=== PATIENT | male | born 1985 | race Asian ===

== ENCOUNTER 2018-02-27 06:22 | Day surgery (SDC) | payer BC ==
[2018-02-27] MEDS ORDERED: CEFAZOLIN 1 GM INJ (07:00)
[2018-02-27] MEDS ORDERED: GELATIN SIZE 100 SPONGE (07:43)
[2018-02-27] MEDS ORDERED: THROMBIN 5000 UNIT VIAL (07:43)
[2018-02-27] MEDS ORDERED: LIDOCAINE 2% (SDV) 5 ML INJ (07:47)
[2018-02-27] MEDS ORDERED: NEOSTIGMINE 3 MG/3 ML SYRINGE (07:47)
[2018-02-27] MEDS ORDERED: PROPOFOL 20 ML (07:47)
[2018-02-27] MEDS ORDERED: SUCCINYLCHOLINE CHLORIDE 100 MG/5 ML SYG IV (07:47)
[2018-02-27] MEDS ORDERED: ROCURONIUM 50 MG INJ (07:47)
[2018-02-27] MEDS ORDERED: GLYCOPYRROLATE 0.4 MG INJ (07:47)
[2018-02-27] MEDS ORDERED: MEPERIDINE 100 MG INJ (07:48)
[2018-02-27] MEDS: LIDOCAINE 1% (MPF) 30 ML INJ (08:41)
[2018-02-27] MEDS: HEPARIN 1000 UNITS/ML 10 ML INJ (08:42)
[2018-02-27] MEDS ORDERED: HYDROmorphONE 1 MG/5 ML IV SYRINGE IV ×3 (09:30)
[2018-02-27] MEDS ORDERED: ONDANSETRON 4 MG INJ IV (09:30)
[2018-02-27] MEDS ORDERED: EPHEDrine SULFATE 50 MG/5 ML SYG IV (09:30)
[2018-02-27] MEDS ORDERED: MEPERIDINE 25 MG INJ IV (09:30)
[2018-02-27] MEDS ORDERED: LABETALOL HCL 20MG INJ IV (09:30)
[2018-02-27] MEDS ORDERED: FENTAnyl 50 MCG/ML VIAL IV ×3 (09:30)
[2018-02-27] MEDS ORDERED: DIPHENHYDRAMINE 50 MG INJ IV (09:30)
[2018-02-27] MEDS ORDERED: METOCLOPRAMIDE 10 MG INJ IV (09:30)
[2018-02-27] MEDS ORDERED: MIDAZOLAM 1 MG/ML 2 ML INJ IV (09:30)
[2018-02-27] MEDS ORDERED: hydrALAzine 20 MG INJ IV (09:30)
[2018-02-27] MEDS ORDERED: OXYCODONE/ACETAMINOPHEN (5/325) TAB PO ×2 (09:30)
== END 2018-02-27 11:05 | disposition home or self-care (01) ==
LOC: SDS 06:22
DX: I12.0 Hypertensive chronic kidney disease with stage 5 chronic kidney disease or end stage renal disease (principal); N18.6 End stage renal disease
CPT/HCPCS: 36821

== ENCOUNTER 2018-10-08 10:26 | Inpatient (IN) | payer BC ==
[2018-10-08 11:21] LABS: ADD MAN DIFF? NO
[2018-10-08 11:24] LABS: WHITE BLOOD COUNT 5.3 10^3/ul (4.8-10.8)
[2018-10-08 11:24] LABS: BASOPHIL # 0.1 10^3/ul (0.0-0.1); BASOPHILS % 2.3 % (0.0-2.0); EOSINOPHILS # 0.2 10^3/ul (0.0-0.5); EOSINOPHILS % 3.4 % (0.0-7.0); HEMATOCRIT 34.8 % (42.0-52.0); HEMOGLOBIN 11.6 g/dl (14.0-18.0); LYMPHOCYTES % 18.1 % (15.0-51.0); MEAN CORPUSCULAR HEMOGLOBIN 32.7 pg (29.0-33.0); MEAN CORPUSCULAR HGB CONC 33.3 g/dl (32.0-37.0); MEAN PLATELET VOLUME 9.1 fl (7.4-10.4); MONOCYTE # 0.6 10^3/ul (0.3-0.9); MONOCYTES % 10.4 % (0.0-11.0); NEUTROPHIL # 3.5 10^3/ul (1.6-7.5); NEUTROPHILS % 65.4 % (39.0-77.0); PLATELET COUNT 160 10^3/UL (140-415); RED BLOOD COUNT 3.55 10^6/ul (4.70-6.10); RED CELL DISTRIBUTION WIDTH 14.7 % (11.5-14.5)
[2018-10-08 11:48] LABS: ALANINE AMINOTRANSFERASE 35 IU/L (13-69); ALBUMIN 3.9 g/dl (3.3-4.9); ALBUMIN/GLOBULIN RATIO 1.11; ALKALINE PHOSPHATASE 60 IU/L (42-121); ANION GAP 13 (5-13); ASPARTATE AMINO TRANSFERASE 31 IU/L (15-46); BILIRUBIN,INDIRECT 0.2 mg/dl (0-1.1); BILIRUBIN,TOTAL 0.2 mg/dl (0.2-1.3); BLOOD UREA NITROGEN 75 mg/dl (7-20); CALCIUM 9.2 mg/dl (8.4-10.2); CARBON DIOXIDE 17 mmol/L (21-31); CHLORIDE 113 mmol/L (97-110); CREATINE KINASE 132 IU/L (23-200); CREATININE 8.52 mg/dl (0.61-1.24); Estimated GFR 7 mL/min (>60); GLUCOSE 124 mg/dl (70-220); POTASSIUM 4.3 mmol/L (3.5-5.1); SODIUM 143 mmol/L (135-144); TOTAL PROTEIN 7.4 g/dl (6.1-8.1)
[2018-10-08 11:59] LABS: INR 1.04; PROTIME 13.7 Sec (11.9-14.9); PT RATIO 1.1
[2018-10-08 12:00] LABS: CK INDEX 0.8; CK-MB 1.06 ng/ml (0.0-2.4); PARTIAL THROMBOPLASTIN TIME 33.5 Sec (23.0-35.0); TROPONIN-I < 0.012 ng/ml (0.000-0.120)
[2018-10-08] MEDS ORDERED: ONDANSETRON 4 MG INJ IV ×2 (12:00→14:00)
[2018-10-08] MEDS ORDERED: ACETAMINOPHEN 325 MG TAB PO ×2 (12:00→14:00)
[2018-10-08] MEDS ORDERED: NACL 0.9% 3 ML SYG IV (14:00)
[2018-10-08] MEDS ORDERED: ALBUMIN HUMAN 25% 50 ML IV (14:00)
[2018-10-08] MEDS ORDERED: DOCUSATE SODIUM 100 MG CAP PO (14:00)
[2018-10-08] MEDS: MULTIVIT/CA CARB/B CMPLX/FA TAB PO (14:22)
[2018-10-08 16:59] LABS: HEPATITIS B SURFACE ANTIGEN NEGATIVE (NEGATIVE)
[2018-10-08 17:17] LABS: HEPATITIS B SURFACE ANTIBODY NEGATIVE (NEGATIVE)
[2018-10-09] MEDS: PANTOPRAZOLE (EC) 40 MG TAB PO (06:20)
[2018-10-09 06:24] LABS: ADD MAN DIFF? NO
[2018-10-09 06:30] LABS: BASOPHIL # 0.1 10^3/ul (0.0-0.1); BASOPHILS % 2.8 % (0.0-2.0); EOSINOPHILS # 0.2 10^3/ul (0.0-0.5); EOSINOPHILS % 3.5 % (0.0-7.0); HEMATOCRIT 34.8 % (42.0-52.0); HEMOGLOBIN 11.7 g/dl (14.0-18.0); LYMPHOCYTES # 0.9 10^3/ul (0.8-2.9); LYMPHOCYTES % 18.8 % (15.0-51.0); MEAN CORPUSCULAR HGB CONC 33.6 g/dl (32.0-37.0); MEAN PLATELET VOLUME 9.3 fl (7.4-10.4); MONOCYTE # 0.5 10^3/ul (0.3-0.9); MONOCYTES % 10.1 % (0.0-11.0); NEUTROPHIL # 2.9 10^3/ul (1.6-7.5); NEUTROPHILS % 64.4 % (39.0-77.0); PLATELET COUNT 163 10^3/UL (140-415); RED BLOOD COUNT 3.55 10^6/ul (4.70-6.10); RED CELL DISTRIBUTION WIDTH 14.8 % (11.5-14.5)
[2018-10-09 06:30] LABS: WHITE BLOOD COUNT 4.6 10^3/ul (4.8-10.8)
[2018-10-09 07:05] LABS: ANION GAP 10 (5-13); BLOOD UREA NITROGEN 51 mg/dl (7-20); CARBON DIOXIDE 25 mmol/L (21-31); CHLORIDE 105 mmol/L (97-110); CREATININE 6.81 mg/dl (0.61-1.24); Estimated GFR 9 mL/min (>60); GLUCOSE 133 mg/dl (70-220); PHOSPHORUS 3.8 mg/dl (2.5-4.9); POTASSIUM 3.9 mmol/L (3.5-5.1); SODIUM 140 mmol/L (135-144)
[2018-10-09] MEDS: FEBUXOSTAT 40 MG TABLET PO (08:49)
[2018-10-10 05:04] LABS: ADD MAN DIFF? NO
[2018-10-10 05:10] LABS: WHITE BLOOD COUNT 4.5 10^3/ul (4.8-10.8)
[2018-10-10 05:10] LABS: BASOPHIL # 0.1 10^3/ul (0.0-0.1); BASOPHILS % 2.4 % (0.0-2.0); EOSINOPHILS # 0.2 10^3/ul (0.0-0.5); HEMATOCRIT 36.1 % (42.0-52.0); HEMOGLOBIN 11.8 g/dl (14.0-18.0); LYMPHOCYTES # 0.9 10^3/ul (0.8-2.9); LYMPHOCYTES % 20.5 % (15.0-51.0); MEAN CORPUSCULAR HEMOGLOBIN 32.4 pg (29.0-33.0); MEAN CORPUSCULAR HGB CONC 32.7 g/dl (32.0-37.0); MEAN CORPUSCULAR VOLUME 99.2 fl (82.0-101.0); MEAN PLATELET VOLUME 9.5 fl (7.4-10.4); MONOCYTE # 0.5 10^3/ul (0.3-0.9); MONOCYTES % 11.1 % (0.0-11.0); NEUTROPHIL # 2.8 10^3/ul (1.6-7.5); NEUTROPHILS % 61.6 % (39.0-77.0); PLATELET COUNT 155 10^3/UL (140-415); RED BLOOD COUNT 3.64 10^6/ul (4.70-6.10); RED CELL DISTRIBUTION WIDTH 14.7 % (11.5-14.5)
[2018-10-10 05:35] LABS: ANION GAP 11 (5-13); BLOOD UREA NITROGEN 61 mg/dl (7-20); CALCIUM 8.9 mg/dl (8.4-10.2); CARBON DIOXIDE 24 mmol/L (21-31); CHLORIDE 107 mmol/L (97-110); CREATININE 7.68 mg/dl (0.61-1.24); Estimated GFR 8 mL/min (>60); GLUCOSE 96 mg/dl (70-220); SODIUM 142 mmol/L (135-144)
[2018-10-10 05:36] LABS: POTASSIUM 4.2 mmol/L (3.5-5.1)
[2018-10-10] MEDS: PANTOPRAZOLE (EC) 40 MG TAB PO (06:20)
[2018-10-10] MEDS: FEBUXOSTAT 40 MG TABLET PO (15:46)
[2018-10-11 05:14] LABS: ADD MAN DIFF? NO
[2018-10-11 05:37] LABS: BASOPHIL # 0.1 10^3/ul (0.0-0.1); BASOPHILS % 2.1 % (0.0-2.0); EOSINOPHILS # 0.3 10^3/ul (0.0-0.5); EOSINOPHILS % 4.4 % (0.0-7.0); HEMATOCRIT 34.1 % (42.0-52.0); HEMOGLOBIN 11.1 g/dl (14.0-18.0); LYMPHOCYTES # 1.1 10^3/ul (0.8-2.9); LYMPHOCYTES % 19.4 % (15.0-51.0); MEAN CORPUSCULAR HEMOGLOBIN 32.6 pg (29.0-33.0); MEAN CORPUSCULAR HGB CONC 32.6 g/dl (32.0-37.0); MEAN CORPUSCULAR VOLUME 100.3 fl (82.0-101.0); MEAN PLATELET VOLUME 9.3 fl (7.4-10.4); MONOCYTE # 0.7 10^3/ul (0.3-0.9); NEUTROPHIL # 3.5 10^3/ul (1.6-7.5); NEUTROPHILS % 61.7 % (39.0-77.0); PLATELET COUNT 152 10^3/UL (140-415); RED CELL DISTRIBUTION WIDTH 14.6 % (11.5-14.5)
[2018-10-11 05:37] LABS: WHITE BLOOD COUNT 5.7 10^3/ul (4.8-10.8)
[2018-10-11 06:06] LABS: ANION GAP 9 (5-13); BLOOD UREA NITROGEN 46 mg/dl (7-20); CALCIUM 8.6 mg/dl (8.4-10.2); CARBON DIOXIDE 29 mmol/L (21-31); CHLORIDE 102 mmol/L (97-110); CREATININE 6.57 mg/dl (0.61-1.24); Estimated GFR 10 mL/min (>60); GLUCOSE 90 mg/dl (70-220); SODIUM 140 mmol/L (135-144)
[2018-10-11] MEDS: PANTOPRAZOLE (EC) 40 MG TAB PO (06:36)
[2018-10-11 07:14] LABS: POTASSIUM 4.2 mmol/L (3.5-5.1)
[2018-10-11] MEDS: FEBUXOSTAT 40 MG TABLET PO (09:43)
[2018-10-12] MEDS: PANTOPRAZOLE (EC) 40 MG TAB PO (05:22)
[2018-10-12] MEDS: HEPARIN 1000 UNITS/ML 10 ML INJ CATHETER (12:09)
[2018-10-12] MEDS: FEBUXOSTAT 40 MG TABLET PO (12:22)
[2018-10-13] MEDS: PANTOPRAZOLE (EC) 40 MG TAB PO (06:10)
[2018-10-13 06:23] LABS: ANION GAP 10 (5-13); BLOOD UREA NITROGEN 42 mg/dl (7-20); CALCIUM 8.7 mg/dl (8.4-10.2); CARBON DIOXIDE 28 mmol/L (21-31); CHLORIDE 103 mmol/L (97-110); CREATININE 6.52 mg/dl (0.61-1.24); Estimated GFR 10 mL/min (>60); GLUCOSE 98 mg/dl (70-220); POTASSIUM 4.3 mmol/L (3.5-5.1); SODIUM 141 mmol/L (135-144)
[2018-10-13] MEDS: FEBUXOSTAT 40 MG TABLET PO (09:16)
[2018-10-13] MEDS ORDERED: HEPARIN 1000 UNITS/ML 10 ML INJ CATHETER (14:30)
[2018-10-14] MEDS: PANTOPRAZOLE (EC) 40 MG TAB PO (06:25)
[2018-10-14] MEDS: FEBUXOSTAT 40 MG TABLET PO (12:59)
== END 2018-10-14 17:20 | disposition home or self-care (01) | DRG 683 ==
LOC: E/R 10:26 → MS1 10-09 22:05 → TEL 11:36
PROC: 5A1D70Z Performance of Urinary Filtration, Intermittent, Less than 6 Hours Per Day (ICD-10-PCS; 2018-10-08)
PROC: 5A1D70Z Performance of Urinary Filtration, Intermittent, Less than 6 Hours Per Day (ICD-10-PCS; 2018-10-10)
PROC: 5A1D70Z Performance of Urinary Filtration, Intermittent, Less than 6 Hours Per Day (ICD-10-PCS; 2018-10-11)
PROC: 5A1D70Z Performance of Urinary Filtration, Intermittent, Less than 6 Hours Per Day (ICD-10-PCS; principal; 2018-10-13)
DX: N17.9 Acute kidney failure, unspecified (principal); E87.2 Acidosis; N18.6 End stage renal disease; I50.9 Heart failure, unspecified; N31.9 Neuromuscular dysfunction of bladder, unspecified; D64.9 Anemia, unspecified; M1A.9XX0 Chronic gout, unspecified, without tophus (tophi); E66.9 Obesity, unspecified; Z68.34 Body mass index [BMI] 34.0-34.9, adult; Q90.9 Down syndrome, unspecified; Z99.2 Dependence on renal dialysis
CPT/HCPCS: 71045; 80048; 80053; 82550; 82553; 83735; 84100; 84484; 85025; 85610; 85730; 86706; 87081; 87340; 90935; 93005; 99285-25